=== PATIENT | female | born 1985 | race Hispanic/Latino ===

== ENCOUNTER 2018-06-28 11:01 | Emergency (ER) | payer OTHER ==
[2018-06-28 11:36] VITALS: BMI 29.2
[2018-06-28 11:42] VITALS: TEMP 98.6; O2SAT 98
[2018-06-28] MEDS ORDERED: Sodium Chloride 0.9% 1,000 ML IV STA (12:07)
[2018-06-28] MEDS ORDERED: DiphenhydrAMINE 50 mg/ml Inj IVP STA (12:07)
--- NOTE | 2018-06-28 12:18 | ED PDOC ---
Arrival/HPI - History of Present Illness Narrative History of Present Illness (Text): 06/28/18 12:14 Pt is a 33 yo F with pmhx of migraines who presents for a migraine flair. She states that she has been having a R sided migraine for 1&1/2 weeks which has not improved with any treatments. She is on sumitriptan, propanolol and Aimovig injection for her migraines which she is complaint with. She states that her triggers is the humidity and rain and it typically gets this bad around this time of the year when the weather is changing. She states that her current pain is a 7/10 localized to the R side and wrapping around going to the neck. She is currently denying vision changes, trauma to the head, numbness, tingling, weakness in any extremities, chest pain, sob, cough, abd pain, or dysuria, hematuria. She admits to photophobia, nausea, and last vomited last night. She also reports having an MRI w/ contrast done 2 months ago which showed no masses or lesions as per pt. Pmhx: Migraines All: sulfa drugs - pruritic reaction Social: Denies current tobacco use (quit 12 years ago), denies etoh use, admits to marijuana use yesterday to alleviate symptoms of nausea Fam hx: Unknown (adopted) Time/Duration: > week Symptom Onset: Gradual Symptom Course: Unchanged Severity Level: 7 <Omari Schaffer - Last Filed: 06/28/18 20:40> - General Historian: Patient <Ralf Jaimes - Last Filed: 07/01/18 07:29> - General Chief Complaint: Headache Time Seen by Provider: 06/28/18 11:17 Past Medical History - Provider Review Nursing Documentation Reviewed: Yes - Infectious Disease Hx of Infectious Diseases: None - Neurological Hx Migraine: Yes Other/Comment: Bar's palsy - Renal Hx Kidney Stones: Yes - Psychiatric Hx Substance Use: Yes - Surgical History Hx Orthopedic Surgery: Yes Other/Comment: L leg fracture. Kidney stone removal - Anesthesia Hx Anesthesia: Yes Hx Anesthesia Reactions: No Hx Malignant Hyperthermia: No <Omari Schaffer - Last Filed: 06/28/18 20:40> Family/Social History - Physician Review Nursing Documentation Reviewed: Yes Family/Social History: No Known Family HX (adopted) Smoking Status: Never Smoked Hx Alcohol Use: Yes Frequency of alcohol use: Socially Hx Substance Use: Yes Substance used: marijuana <Omari Schaffer - Last Filed: 06/28/18 20:40> Allergies/Home Meds <Adrián Schafferd - Last Filed: 06/28/18 20:40> <BosompginiRalf - Last Filed: 07/01/18 07:29> Allergies/Adverse Reactions: Allergies Sulfa (Sulfonamide Antibiotics) Allergy (Verified 06/28/18 11:36) RASH Home Medications: Home Meds Medication Instructions Recorded Confirmed Aspirin/Acetaminophen/Caffeine 1 tab PO PRN PRN 06/28/18 06/28/18 [Excedrin Extra Strength Caplet] Erenumab-Aooe [Aimovig 140 mg SC Q30D 06/28/18 06/28/18 Autoinjector (2 Pack)] Magnesium Oxide [Magnesium] 1 tab PO DAILY 06/28/18 06/28/18 Ondansetron ODT [Zofran ODT] 1 tab PO PRN PRN 06/28/18 06/28/18 RX: Propranolol HCl [Propranolol 1 tab PO DAILY 06/28/18 06/28/18 HCl ER] RX: SUMAtriptan [Imitrex Tab] 100 mg PO PRN PRN 06/28/18 06/28/18 Riboflavin [Vitamin B-2] 400 mg PO DAILY 06/28/18 06/28/18 Review of Systems - Physician Review All systems were reviewed & negative as marked: Yes - Review of Systems Eyes: Photophobia. absent: Vision Changes, Eye Pain Respiratory: absent: SOB, Cough Cardiovascular: absent: Chest Pain, Palpitations Gastrointestinal: Nausea. absent: Abdominal Pain, Vomiting Neurological: Headache. absent: Focal Weakness, Speech Changes, Facial Droop <Adrián Schafferd - Last Filed: 06/28/18 20:40> - Review of Systems Gastrointestinal: Vomiting <HavenemJeffRalf - Last Filed: 07/01/18 07:29> Physical Exam Vital Signs Reviewed: Yes Vital Signs Temp Pulse Resp BP Pulse Ox 06/28/18 11:42 98.6 F 97 H 17 112/62 98 Temperature: Afebrile Blood Pressure: Normal Pulse: Regular Respiratory Rate: Normal Appearance: Positive for: Well-Appearing, Non-Toxic Pain Distress: Mild Mental Status: Positive for: Alert and Oriented X 3 - Systems Exam Head: Present: Atraumatic, Normocephalic Pupils: Present: PERRL Extroacular Muscles: Present: EOMI Conjunctiva: Present: Normal Neck: Present: Normal Range of Motion. No: Meningeal Signs, MIDLINE TENDERNESS Respiratory/Chest: Present: Clear to Auscultation, Good Air Exchange. No: Respiratory Distress, Accessory Muscle Use, Wheezes, Rales, Rhonchi Cardiovascular: Present: Regular Rate and Rhythm, Normal S1, S2. No: Murmurs, Rub, Gallop Abdomen: Present: Normal Bowel Sounds. No: Tenderness, Distention, Peritoneal Signs, Rebound, Guarding Lower Extremity: Present: Normal Inspection. No: Edema, CALF TENDERNESS Neurological: Present: GCS=15, Speech Normal, Motor Func Grossly Intact, Normal Sensory Function Skin: Present: Warm, Dry, Normal Color. No: Rashes Psychiatric: Present: Alert, Oriented x 3, Normal Insight, Normal Concentration, Normal Affect, Normal Mood <Omari Schaffer - Last Filed: 06/28/18 20:40> Vital Signs Temp Pulse Resp BP Pulse Ox 06/28/18 12:34 89 18 114/65 98 06/28/18 11:42 98.6 F 97 H 17 112/62 98 <Ralf Jaimes - Last Filed: 07/01/18 07:29> Medical Decision Making ED Course and Treatment: 06/28/18 12:29 Pt is a 33 yo F with pmhx detailed above who presents for migraine flair up. - Decadron, - Toradol 30mg IV - Benadryl - Reglan - IVF - Medication Orders Current Medication Orders: Sodium Chloride (Sodium Chloride 0.9%) 1,000 mls @ 999 mls/hr IV .Q1H1M STA Stop: 06/28/18 13:07 Ketorolac Tromethamine (Toradol) 30 mg IVP STAT STA Stop: 06/28/18 12:08 Discontinued Medications Dexamethasone (Decadron Inj) 10 mg IVP STAT STA Stop: 06/28/18 12:08 Diphenhydramine HCl (Benadryl) 10 mg IVP STAT STA Stop: 06/28/18 12:08 Metoclopramide HCl (Reglan) 10 mg IVP STAT STA Stop: 06/28/18 12:11 <Omari Schaffer - Last Filed: 06/28/18 20:40> ED Course and Treatment: Patient Seen With Resident: In agreement with resident note. Patient was seen and evaluated with resident, came up with plan and treatment together. Impression: 33 year old female who is complaining of a migraine for the past week and a half. Plan: -- Decadron -- Benadryl -- Toradol -- Reglan -- IV fluids Progress Notes: 06/28/18 13:43 On reevaluation the patient feels better and states that her headache has improved. I have discussed the results and plan with the patient, who expresses understanding. Patient given the opportunity to ask question, all questions were answered and there is agreement with the plan to discharge the patient home. Patient doesn't want any prescriptions for pain medications at this time. Patient is stable for discharge. Patient will follow up with . - Medication Orders Current Medication Orders: Sodium Chloride (Sodium Chloride 0.9%) 1,000 mls @ 999 mls/hr IV .Q1H1M STA Stop: 06/28/18 13:07 Last Admin: 06/28/18 12:51 Dose: 999 mls/hr eMAR Start Stop Document 06/28/18 12:51 LA (Rec: 06/28/18 12:51 LA [id number]) Intravenous Solution Start Date 06/28/18 Start Time 12:51 End Date 06/28/18 End time 13:52 Total Infusion Time 61 Discontinued Medications Dexamethasone (Decadron Inj) 10 mg IVP STAT STA Stop: 06/28/18 12:08 Last Admin: 06/28/18 12:49 Dose: 10 mg IVP Administration Document 06/28/18 12:49 LA (Rec: 06/28/18 12:49 LA [id number]) Charges for Administration # of IVP Administrations 1 Diphenhydramine HCl (Benadryl) 10 mg IVP STAT STA Stop: 06/28/18 12:08 Last Admin: 06/28/18 12:49 Dose: 10 mg IVP Administration Document 06/28/18 12:49 LA (Rec: 06/28/18 12:49 LA [id number]) Charges for Administration # of IVP Administrations 1 Ketorolac Tromethamine (Toradol) 30 mg IVP STAT STA Stop: 06/28/18 12:08 Last Admin: 06/28/18 12:49 Dose: 30 mg MAR Pain Assessment Document 06/28/18 12:49 LA (Rec: 06/28/18 12:50 LA [id number]) Pain Reassessment Is this a pain reassessment? No Sleep Is patient sleeping during reassessment? No Presence of Pain Presence of Pain Yes Pain Scale Used Protocol: PSCALES Pain Scale Used Numeric Location Pain Location Body Relay Assembler Description Description Intermittent Intensity of Pain at present 9 Pain Behavior Guarding IVP Administration Document 06/28/18 12:49 LA (Rec: 06/28/18 12:50 LA [id number]) Charges for Administration # of IVP Administrations 1 Metoclopramide HCl (Reglan) 10 mg IVP STAT STA Stop: 06/28/18 12:11 Last Admin: 06/28/18 12:48 Dose: 10 mg IVP Administration Document 06/28/18 12:48 LA (Rec: 06/28/18 12:49 LA [id number]) Charges for Administration # of IVP Administrations 1 <Ralf Jaimes - Last Filed: 07/01/18 07:29> - PA / AREA SUPERVISOR / Resident Statement / has reviewed & agrees with the documentation as recorded. / has examined the patient and agrees with the treatment plan. - Scribe Statement The provider has reviewed the documentation as recorded by the Gideon Umanzor Provider Scribe Attestation: All medical record entries made by the Danyelleibdejan were at my direction and personally dictated by me. I have reviewed the chart and agree that the record accurately reflects my personal performance of the history, physical exam, medical decision making, and the department course for this patient. I have also personally directed, reviewed, and agree with the discharge instructions and disposition. <Ralf Jaimes - Last Filed: 07/01/18 07:29> Disposition/Present on Arrival - Present on Arrival Any Indicators Present on Arrival: No History of DVT/PE: No History of Uncontrolled Diabetes: No Urinary Catheter: No History of Decub. Ulcer: No History Surgical Site Infection Following: None - Disposition Have Diagnosis and Disposition been Completed?: Yes Patient Plan: Discharge <Omari Schaffer - Last Filed: 06/28/18 20:40> - Present on Arrival Any Indicators Present on Arrival: No - Disposition Have Diagnosis and Disposition been Completed?: Yes Disposition Time: 14:05 Patient Plan: Discharge <Ralf Jaimes - Last Filed: 07/01/18 07:29> - Disposition Diagnosis: Migraine Disposition: HOME/ ROUTINE Condition: IMPROVED Discharge Instructions (ExitCare): Migraine Headache (DC), Headache, Adult (DC) Referrals: Satish Easley MD [Staff Provider] - Follow up with primary Karla Jauregui MD [Medical Doctor] - Follow up with primary [facility] [place] - Follow up with primary Forms: [employer] (Yoruba)
[2018-06-28 12:35] VITALS: RESP 18
[2018-06-28 13:53] VITALS: BP 116/67; PULSE 81
== END 2018-06-28 14:31 | disposition home or self-care (01) ==
LOC: ED 11:01
DX: G43.909 Migraine, unspecified, not intractable, without status migrainosus (principal)
CPT/HCPCS: 96361; 96374; 96375; 99285; J1100; J1200; J1885; J2765; J7030